=== PATIENT | male | born 1995 | race Two or more races ===

== ENCOUNTER 2024-12-12 14:35 | Emergency (ER) | payer BC, SELFPAY ==
[2024-12-12 14:36] VITALS: BMI 28.7
[2024-12-12 14:50] VITALS: BP 137/88; PULSE 84; RESP 20; TEMP 37.8; O2SAT 97
--- NOTE | 2024-12-12 14:55 | PD.EDNV ---
Nausea/Vomit./Diarrhea-RME/HPI General Chief complaint: Nausea/Vomiting/Diarrhea Stated complaint: DIARRHEA, N/V X2 DAYS Time Seen by Provider: 12/12/24 14:51 Source: patient Arrival date/time: 12/12/24 14:35 29-year-old male with no known medical history presents to the emergency room with a chief complaint of nausea, vomiting, diarrhea x 2 days Mode of arrival: ambulatory Limitations: no limitations Related Data Allergies Allergy/AdvReac Type Severity Reaction Status Date / Time No Known Allergies Allergy Verified 12/12/24 14:38 ED Exam General Limitations: Present no limitations Course Vital Signs Vital signs: Vital Signs Temperature 100.1 F 12/12/24 14:50 Pulse Rate 84 12/12/24 14:50 Respiratory Rate 20 12/12/24 14:50 Blood Pressure 137/88 H 12/12/24 14:50 Pulse Oximetry (%) 97 12/12/24 14:50 Oxygen Delivery Method Room Air 12/12/24 14:50 Discharge Plan Patient/Caregiver Discharge Instructions Print Language: Estonian
[2024-12-12] MEDS: ONDANSETRON ODT 4 MG TABRAP PO (15:52)
--- NOTE | 2024-12-12 17:04 | PD.EDRME ---
Rapid Medical Screening Exam RME Arrival date/time: 12/12/24 14:35 29-year-old male with no known medical history presents to the emergency room with a chief complaint of nausea, vomiting, diarrhea x 2 days I have greeted and performed a focused initial assessment of this patient. A comprehensive ED assessment and evaluation of the patient, analysis of all test results, and completion of the medical decision making process will be conducted by additional ED providers. Chief Complaint: Nausea/Vomiting/Diarrhea Time Seen by Provider: 12/12/24 14:51 Vital signs: Vital Signs Temperature 100.1 F 12/12/24 14:50 Pulse Rate 84 12/12/24 14:50 Respiratory Rate 20 12/12/24 14:50 Blood Pressure 137/88 H 12/12/24 14:50 Pulse Oximetry (%) 97 12/12/24 14:50 Oxygen Delivery Method Room Air 12/12/24 14:50 Vital signs reviewed by provider: Yes
[2024-12-12 17:14] VITALS: TEMP 39
[2024-12-12] MEDS: ACETAMINOPHEN 500 MG TABLET 1000 MG PO (17:14)
[2024-12-12 17:17] VITALS: PULSE 127; RESP 20; TEMP 39; O2SAT 95
[2024-12-12 17:31] LABS: Lactate (Lactic Acid) 3.7 mMol/L (0.4-2.0)
[2024-12-12 17:33] LABS: Basophils % (Auto) 0 % (0-2.5); Eosinophils % (Auto) 0 % (0-10); Hematocrit 46.4 % (41.0-53.0); Hemoglobin 16.2 g/dL (13.5-16.0); Immature Granulocytes % (Auto) 0 % (0-0); Immature Granulocytes Auto 0.04 Thou/mm3 (0.00-0.00); Lymphocytes # (Auto) 2.3 Thou/mm3 (1.0-4.8); Lymphocytes % (Auto) 20 % (10-50); Mean Corpuscular HGB Conc 34.9 g/dl (31.0-37.0); Mean Corpuscular Hemoglobin 28.8 pg (25.0-35.0); Mean Corpuscular Volume 83 fL (80-100); Monocytes # (Auto) 0.3 Thou/mm3 (0.0-0.8); Monocytes % (Auto) 3 % (0-12); Neutrophils % (Auto) 77 % (37-80); Nucleated Red Blood Cell % 0 /100 WBC (0); Platelet Count 227 Thou/mm3 (140-440); RDW Standard Deviation 39.4 fL (35.1-43.9); Red Blood Count 5.62 Miln/mm3 (4.50-5.90); White Blood Count 11.6 Thou/mm3 (3.8-10.6)
[2024-12-12] MEDS: SODIUM CHLORIDE 0.9% 1000 ML 1,000 ML 999 ML IV (18:14)
[2024-12-12 18:18] VITALS: TEMP 37.7
[2024-12-12 18:18] LABS: Alanine Aminotransferase 15 U/L (10-49); Albumin, Serum 5.2 gm/dL (3.5-5.0); Albumin/Globulin Ratio 1.7 (1.2-2.2); Alkaline Phosphatase 75 U/L (46-116); Anion Gap 16 (7-16); Aspartate Amino Transferase 18 U/L (0-34); BUN/Creatinine Ratio 8 Ratio (12-20); Bilirubin,Total 0.9 mg/dL (0.3-1.2); Blood Urea Nitrogen 9 mg/dL (9-23); Carbon Dioxide 20.2 mMol/L (20.0-31.0); Chloride 105 mMol/L (98-107); Creatinine (Component) 1.2 mg/dL (0.6-1.3); Estimated Creatinine Clearance 104.7 mL/min (>60); Globulin 3.1 gm/dL (2.3-3.5); Glucose 119 mg/dL (74-106); Lipase 114 U/L (12-53); Osmolality,Calculated 280 (275-295); Potassium 3.9 mMol/L (3.4-5.1); Procalcitonin 0.35 ng/ml (0.0-0.49); Sodium 141 mMol/L (136-145); Total Protein 8.3 gm/dL (5.7-8.2); eGFR > 60 See Note
[2024-12-12] MEDS: cefTRIAXone/D5w 1gm IV premix 1 GM/50 ML BAG IV (18:23)
[2024-12-12 19:55] LABS: Collection Type, Urine Clean Catch; Squamous Epithelial Cell,Urine 0 /hpf (0-5)
[2024-12-12 20:10] LABS: Bacteria,Urine Rare; Bilirubin,Urine Negative (Negative); Blood,Urine Negative (Negative); Clarity,Urine Clear (Clear/Hazy); Color,Urine Yellow (Lt Yel-Yel); Glucose, Urine Negative (Negative); Ketones,Urine Negative (Negative); Leukocyte Esterase,Urine Negative (Negative); Nitrite,Urine Negative (Negative); Protein,Urine Trace (Neg - Trace); RBC,Urine 1 /hpf (0-3); Specific Gravity,Urine 1.021 (1.001-1.035); Urobilinogen,Urine Negative mg/dL (0.0-1.0); WBC,Urine 3 /hpf (0-5)
[2024-12-12 20:25] LABS: Reflex Lactate? Y
--- NOTE | 2024-12-12 20:47 | PC.NURSE ---
patient refused repeat lab draw. Patient wishes to leave. Risks and benefits explained. notified provider. patient signed out AMA at [id number]. patient is gcs 15.
== END 2024-12-12 20:49 | disposition left against medical advice (07) ==
LOC: SERX 15:12
PROVIDERS: Nurse Practitioner Family; Emergency Provider Emergency Medicine
DX: R11.2 Nausea with vomiting, unspecified (principal); R19.7 Diarrhea, unspecified; Z53.29 Procedure and treatment not carried out because of patient's decision for other reasons
CPT/HCPCS: 36415; 80053; 81001; 83605; 83690; 84145; 85025; 87040; 87086; 96365; 99284; J0696; J7030; Q0162; A9270